=== PATIENT | female | born 1970 ===

== ENCOUNTER → 2018-10-18 | Outpatient (REF) | payer SELFPAY ==
[~2018-10-18] VITALS: Ht 160 cm; Wt 68.0 kg
[~2018-10-18] MED LIST: BUPROPION150 M4 PO; SERTRALINE50 MG PO
[2018-10-18 11:23] VITALS: BP 105/71
== END | disposition home or self-care (01) | DRG 951 ==
LOC: ORM 09:30 → PO 09:37
PROVIDERS: ATTEND Surgery
DX: Z01.818 Encounter for other preprocedural examination (principal); F33.8 Other recurrent depressive disorders; Z12.11 Encounter for screening for malignant neoplasm of colon; Z98.51 Tubal ligation status; Z90.721 Acquired absence of ovaries, unilateral; Z72.89 Other problems related to lifestyle

== ENCOUNTER 2018-10-25 07:43 | Day surgery (SDC) | payer SELFPAY ==
[~2018-10-25] VITALS: Ht 160 cm; Wt 68.0 kg
[2018-10-25 10:03] VITALS: BP 125/70
== END 2018-10-25 10:20 | disposition home or self-care (01) | DRG 951 ==
LOC: ENDO 07:43
PROVIDERS: ATTEND Surgery
PROC: 0DJD8ZZ Inspection of Lower Intestinal Tract, Via Natural or Artificial Opening Endoscopic (ICD-10-PCS; principal; 2018-10-25)
DX: Z12.11 Encounter for screening for malignant neoplasm of colon (principal); K64.8 Other hemorrhoids